=== PATIENT | male | born 1960 | race Caucasian/White ===

== ENCOUNTER → 2023-11-23 09:52 | Outpatient (CLI) | payer MEDICARE, MEDICAID, SELFPAY | LOC: CAR 09:53 | PROVIDERS: PCP Family Medicine; Referring Provider Family Medicine; Visit Provider Family Medicine | DX: R00.1 Bradycardia, unspecified (principal); I10 Essential (primary) hypertension | CPT/HCPCS: 93242 ==

== ENCOUNTER 2024-07-19 09:40 | Day surgery (SDC) | payer MEDICARE, SELFPAY ==
--- NOTE | 2024-07-19 | PATH_ITS ---
[facility] Accession Number: [id number] No. of containers..02 Tissue . 01 Material submitted: . PART A: colon - CECAL POLYP PART B: rectum - RECTAL POLYP . 01 Diagnosis: Part A: CECAL POLYP: Tubular adenoma. . Part B: RECTAL POLYP: Hyperplastic polyp. [facility] 07/21/2024 1317 Local . 01 Electronically signed: . Prosper Hutchison MD, Pathologist NPI- [id number] . 01 Gross description: . A. Received in formalin with two patient identifiers and cecal polyp, is a single moody soft tissue fragment, 0.4 cm in greatest dimension. Submitted in A1. . B. Received in formalin with two patient identifiers and rectal polyp, are three moody soft tissue fragments, 0.2 to 0.3 cm in greatest dimension. Submitted in B1. ([id number]) /MRV 07/21/2024 1317 Local . 01 Pathologist provided ICD-10: D12.0, K63.5 . 01 CPT . 783108, 125205 Specimen Comment: A courtesy copy of this report has been sent to [phone] Performed at: [address] [facility] [address], [place], [place] [id number] MD Prosper Hutchison MD Phone: [phone]
[2024-07-19] MEDS: LACTATED RINGERS 1,000 ML 42 ML IV (10:18)
[2024-07-19 10:20] VITALS: BP 138/84; PULSE 69; RESP 17; TEMP 36.4; O2SAT 99
--- NOTE | 2024-07-19 10:30 | P.HP_ITS ---
History of Present Illness History of Present Illness Date Patient Seen: 07/19/24 Time Patient Seen: 10:30 Chief complaint: SDC Narrative: 64-year-old male personal history of colonic polyps here for screening colonoscopy. Last colonoscopy 5 years ago. No family history of colon cancer. No abdominal concerns today. [facility], [facility] Medical History (Updated 07/19/24 @ 10:31 by Luis Carlos Churchill MD) Encounter for subsequent annual wellness visit (AWV) in Medicare patient Hypogonadism in male Erectile dysfunction Encounter for annual wellness exam in Medicare patient Skin cancer (~2015) Insomnia Anxiety Surgical History (Updated 02/24/23 @ 21:24 by Jessie Burdick) Anesthesia S/P right rotator cuff repair (~2014) Family History (Updated 02/24/23 @ 21:25 by Jessie Burdick) Father Alzheimer's disease Mother History of heart disease Social History Smoking Status: Never smoker alcohol intake: never Meds Home Medications and Allergies Home Medications Medication Instructions Recorded Confirmed Type safety needles 25 gauge x 1 1/2 #100 ea 04/27/23 04/20/24 Rx (BD Eclipse) lorazepam 1 mg tablet 0.5 - 1 mg (0.5 - 1 x 1 mg) PO 04/08/24 07/19/24 Rx DAILY PRN anxiety #30 tabs atorvastatin 20 mg tablet 20 mg PO DAILY cholesterol #90 tabs 04/20/24 07/19/24 Rx tadalafil 20 mg tablet (Cialis) 20 mg PO DAILY PRN sexual activity 04/20/24 07/19/24 Rx #30 tabs testosterone cypionate 200 mg/mL 200 mg IM .COMPLEX #3 mL 04/20/24 07/19/24 Rx intramuscular oil (Depo-Testosterone) olmesartan 40 1 tab PO DAILY #90 tabs 06/24/24 07/19/24 Rx mg-hydrochlorothiazide 12.5 mg tablet zolpidem 10 mg tablet (Ambien) 5 mg PO BEDTIME PRN sleep 07/19/24 07/19/24 History Allergies Allergy/AdvReac Type Severity Reaction Status Date / Time irbesartan Allergy Mild Dizziness Verified 07/19/24 10:07 losartan Allergy Mild Dizziness Verified 07/19/24 10:07 valsartan Allergy Mild Dizziness Verified 07/19/24 10:07 Exam Vital Signs (past 8 hours): - 07/19/24 10:20 Temperature 97.5 F L Pulse Rate 69 Respiratory Rate 17 Blood Pressure 138/84 Pulse Oximetry 99 Oxygen Delivery Method Room Air Oxygen Delivery Method Room Air Narrative Exam Narrative: General adult man alert oriented no acute distress Chest nonlabored respiration Extremities warm well perfused Assessment & Plan Assessment and plan (1) Personal history of colonic polyps: Status: Acute Assessment & Plan narrative: The patient requires colorectal screening and colonoscopy is recommended. Technical details were discussed. Risks, benefits, alternatives explained. Risks including but not limited to myocardial infarction, aspiration, bleeding, pain, missed lesion, incomplete examination, need for further radiographic studies, intestinal injury, and need for major abdominal surgery were discussed. All questions were answered to their satisfaction, and they are in agreement with this plan. Time-Based Coding :: [TOTAL MINUTES] spent with patient and on the chart (including review of chart, obtaining history, exam, reviewing outside data, placing orders, documenting exam and treatment plan, and counseling patient) on [DATE].
--- NOTE | 2024-07-19 11:08 | P.OP.COLON_ITS ---
Operative Date/Time/Diagnoses Date of procedure: 07/19/24 Time of procedure: 11:12 Pre-op diagnosis: Personal history of colonic polyps Post-op diagnosis: other (Colonic polyps x2) Procedure & Clinicians Study performed: Screening colonoscopy Same procedure as scheduled: Yes Indications: Screening Surgeon: Luis Carlos Churchill Procedure Notes Procedure in detail: The history and physical was performed/updated and the patient is ASA class is 2. The procedure was discussed in detail with the patient. Potential risks complications including infection, bleeding, missed diagnosis, perforation, need for surgery, and were explained. Their questions were answered and informed consent was obtained. Patient was brought to the procedure room and placed standard monitoring equipment. The patient's vital signs were monitored continuously throughout the entire procedure. Prior to starting time-out was performed. The patient was placed in the left lateral recumbent position. Procedural sedation was administered by anesthesia. Examination began with a thorough inspection of the perianal area there was no evidence of fissures, fistulae, external hemorrhoids or cutaneous malignancy. The colonoscopy scope was then placed into the anal canal and was advanced to the cecum, which was identified by the ileocecal valve, the appendiceal orifice and the confluence of the taenia. The scope was then slowly withdrawn examining colon thoroughly in all directions, irrigating it of any residual stool. The scope was retroflexed within the rectum The patient tolerated the procedure well. They will be discharged once criteria are met. The prep was of good/excellent quality. The withdrawl time was 8 minutes. FINDINGS * Sessile 3 mm polyp adjacent to the ileocecal valve removed with biopsy forceps * 2 mm polyp within the rectum removed with biopsy forceps Specimen(s): other (Cecal polyp, rectal polyp) Impression: Colonic polyps x2 Post-procedure Plan for aftercare: Follow up dependent on pathology findings likely 5 years Disposition: same day surgery
[2024-07-19 11:42] VITALS: BP 103/69; PULSE 70; RESP 17; TEMP 36.6; O2SAT 97
[2024-07-19 11:48] VITALS: BP 112/75; PULSE 67; RESP 16; TEMP 36.6; O2SAT 98
[2024-07-19 11:53] VITALS: BP 128/75; PULSE 62; RESP 14; TEMP 36.5; O2SAT 99
== END 2024-07-19 12:10 | disposition home or self-care (01) ==
PROVIDERS: PCP Family Medicine; Referring Provider Surgery; Visit Provider Surgery
PROC: 0DJD8ZZ Inspection of Lower Intestinal Tract, Via Natural or Artificial Opening Endoscopic (ICD-10-PCS; CPT 45378; principal; 2024-07-19 10:45)
DX: Z12.11 Encounter for screening for malignant neoplasm of colon (principal); Z86.010 Personal history of colon polyps; D12.0 Benign neoplasm of cecum; K62.1 Rectal polyp
CPT/HCPCS: 45380; J2704

== ENCOUNTER → 2024-08-18 18:16 | Outpatient (CLI) | payer MEDICARE, SELFPAY | PROVIDERS: PCP Family Medicine; Visit Provider Nurse Practitioner Family | DX: R07.0 Pain in throat (principal) | CPT/HCPCS: 87070 ==

== ENCOUNTER → 2024-12-15 16:47 | Outpatient (CLI) | payer MEDICARE, BC, SELFPAY ==
[2024-12-15 18:19] LABS: Alanine Aminotransferase 19 IU/L (<50); Albumin 4.6 g/dL (3.5-5.0); Albumin Globulin Ratio 1.5 (1.0-2.8); Alkaline Phosphatase 43 U/L (38-126); Aspartate Aminotransferase 34 IU/L (17-59); BUN Creatinine Ratio 14.6 (6-22); Bilirubin Total 0.8 mg/dL (0.2-1.3); Blood Urea Nitrogen 15 mg/dL (9-20); Calcium 9.3 mg/dL (8.4-10.2); Carbon Dioxide 31 mmol/L (22-32); Chloride 103 mmol/L (98-107); Cholesterol 218 mg/dL (140-199); Estimated Glomerular Filt Rate > 60 mL/min (>60); Glucose 101 mg/dL (80-110); HDL Cholesterol 50 mg/dL (40-60); HEMOLYSIS < 15 (0-50); LDL Cholesterol Calculated 144 mg/dL (<100); Potassium 3.9 mmol/L (3.4-5.1); Sodium 140 mmol/L (137-145); Total Protein 7.6 g/dL (6.3-8.2); Triglycerides 122 mg/dL (35-150)
[2024-12-15 18:52] LABS: TSH w/ Reflex to FT4 1.29 uIU/mL (0.47-4.68)
[2024-12-16 16:28] LABS: Prostate Specific Antigen Scrn 1.57 ng/mL (0.1-4.0)
[2024-12-16 16:31] LABS: Testosterone 1990 ng/dL (71.8-623)
== END ==
LOC: LAB 16:49
PROVIDERS: PCP Family Medicine; Referring Provider Physician Assistant; Visit Provider Physician Assistant
DX: I10 Essential (primary) hypertension (principal); E78.5 Hyperlipidemia, unspecified; R42 Dizziness and giddiness; R97.20 Elevated prostate specific antigen [PSA]; E29.1 Testicular hypofunction; Z12.5 Encounter for screening for malignant neoplasm of prostate
CPT/HCPCS: 36415; 80053; 80061; 84403; 84443; G0103

== ENCOUNTER → 2025-10-05 15:21 | Outpatient (CLI) | payer MEDICARE, BC, SELFPAY ==
[2025-10-05 16:17] LABS: Add Manual Diff / Slide Review NO; Hematocrit 42.8 % (41-53); Hemoglobin 14.5 g/dL (13.5-17.5); Lymphocytes Absolute Auto 2200 /uL (1100-4500); Mean Corpuscular HGB Conc 33.9 % (30-36); Mean Corpuscular Hemoglobin 32.2 PG (26-34); Mean Corpuscular Volume 95.1 fL (80-100); Platelet Count 186 X10^3/uL (150-400)
[2025-10-05 16:26] LABS: HEMOLYSIS < 15 (0-50)
[2025-10-05 16:34] LABS: Alanine Aminotransferase 16 IU/L (<50); Albumin 4.6 g/dL (3.5-5.0); Albumin Globulin Ratio 1.7 (1.0-2.8); Alkaline Phosphatase 55 U/L (38-126); Blood Urea Nitrogen 18 mg/dL (9-20); Calcium 9.4 mg/dL (8.4-10.2); Carbon Dioxide 28 mmol/L (22-32); Chloride 103 mmol/L (98-107); Cholesterol 203 mg/dL (140-199); Estimated Glomerular Filt Rate > 60 mL/min (>60); Globulin 2.7 g/dL (1.7-4.1); Glucose 122 mg/dL (70-99); HDL Cholesterol 63 mg/dL (40-60); Potassium 4.0 mmol/L (3.4-5.1); Sodium 141 mmol/L (137-145); Total Protein 7.3 g/dL (6.3-8.2); Triglycerides 167 mg/dL (35-150)
== END ==
PROVIDERS: PCP Family Medicine; Referring Provider Family Medicine; Visit Provider Family Medicine
DX: Z00.00 Encounter for general adult medical examination without abnormal findings (principal); Z12.5 Encounter for screening for malignant neoplasm of prostate; I10 Essential (primary) hypertension; E78.5 Hyperlipidemia, unspecified
CPT/HCPCS: 36415; 80053; 80061; 84403; 85025; G0103